=== PATIENT | male | born 1995 | race Caucasian/White ===

== ENCOUNTER 2025-03-19 15:17 | Emergency (ER) | payer MEDICAID, OTHER ==
[~2025-03-19] VITALS: Ht 165.1 cm; Wt 91.0 kg
[2025-03-19 15:19] VITALS: O2SAT 98
[2025-03-19] MEDS: ACETAMINOPHEN 325MG TABLET PO ONE (19:34)
[2025-03-19 19:37] VITALS: TEMP 36.9
[2025-03-19 20:45] LABS: BASOPHILS % 0.4 % (0.0-2.0); EOSINOPHILS % 0.0 % (0.0-5.0); HEMATOCRIT. 44.4 % (42.0-52.0); HEMOGLOBIN. 14.8 g/dL (14.0-18.0); LYMPHOCYTES % 9.4 % (20.0-50.0); MEAN PLATELET VOLUME 7.7 fl (7.4-10.4); MONOCYTES % 2.4 % (2.0-8.0); NEUTROPHILS % 87.8 % (40.0-76.0); PLATELET 346 x1000/uL (130-400); RED BLOOD CELL COUNT 4.98 mill/uL (4.7-6.1); RED CELL DISTRIBUTION WIDTH 13.5 % (11.6-14.6)
[2025-03-19 20:58] LABS: CREATININE 1.1 mg/dL (0.6-1.3)
[2025-03-19 20:59] LABS: INR 1.0; UREA NITROGEN BLOOD 19 mg/dL (9-23)
[2025-03-19] MEDS: SODIUM CHLORIDE 0.9% 1,000 ML IV ONE (21:32)
[2025-03-19] MEDS: ONDANSETRON HCL 4MG/2ML INJ IV STA (21:44)
[2025-03-19] MEDS: MORPHINE SULFATE 4 MG/ML INJ (FOR IV/IM USE) IV STA (21:44)
[2025-03-20 00:18] VITALS: BP 119/81; PULSE 78; RESP 15; O2SAT 94
== END 2025-03-20 00:35 | disposition short-term general hospital (02) ==
LOC: ER 15:17
DX: S02.31XA Fracture of orbital floor, right side, initial encounter for closed fracture (principal); H50.631 Inferior rectus muscle entrapment, right eye; Y04.0XXA Assault by unarmed brawl or fight, initial encounter; Y93.89 Activity, other specified; Y92.89 Other specified places as the place of occurrence of the external cause; Y99.8 Other external cause status
CPT/HCPCS: 99285; 70450; 96374; 96361; 96375; 80048; 85025; 85610; 85730; 86850; 86900; 86901; 36415; 70486; 93005; J2405; J2270; J7030